=== PATIENT | female | born 1985 | race Caucasian/White ===

== ENCOUNTER 2018-05-25 10:38 | Emergency (ER) | payer OTHER ==
[2018-05-25] MEDS ORDERED: LIDOCAINE 2% URO-JET 5 ML KIT MM ONE (10:53)
--- NOTE | 2018-05-25 10:55 | ER Document Report ---
ED Medical Screen (RME) - General Chief Complaint: Hemorrhoids Stated Complaint: POSSIBLE HEMORRHOID Time Seen by Provider: 05/25/18 10:54 TRAVEL OUTSIDE OF THE [place] IN LAST 30 DAYS: No - HPI Notes: 05/25/18 10:54 History of hemorrhoids coming in for possible thrombosed hemorrhoid. - Related Data Allergies/Adverse Reactions: No Known Allergies Allergy (Verified 05/25/18 10:39) Physical Exam - Vital signs Vitals: Temp Pulse Resp BP Pulse Ox 98.3 F 69 14 112/61 98 05/25/18 10:47 05/25/18 10:47 05/25/18 10:47 05/25/18 10:47 05/25/18 10:47 Course - Vital Signs Vital signs: Temp Pulse Resp BP Pulse Ox 98.3 F 69 14 112/61 98 05/25/18 10:47 05/25/18 10:47 05/25/18 10:47 05/25/18 10:47 05/25/18 10:47
[2018-05-25] MEDS ORDERED: LIDOCAINE 1%/EPINEPHRINE INJ 20 ML VIAL INJ ONE (12:39)
--- NOTE | 2018-05-25 13:17 | ER Document Report ---
ED General - General Chief Complaint: Hemorrhoids Stated Complaint: POSSIBLE HEMORRHOID Time Seen by Provider: 05/25/18 10:54 Primary Care Provider: LUIS WILKINSON NP-C [Primary Care Provider] - Follow up as needed Notes: Patient has a hemorrhoid this been present for about 3 days. This is the fifth or more times that she has had a thrombosed hemorrhoid. No current bleeding. Just pain. Patient lifts weights which, of course, causes her to strain into the rectal area. TRAVEL OUTSIDE OF THE [place] IN LAST 30 DAYS: No - Related Data Allergies/Adverse Reactions: No Known Allergies Allergy (Verified 05/25/18 10:39) Past Medical History - Social History Smoking Status: Never Smoker Family History: Reviewed & Not Pertinent Patient has suicidal ideation: No Patient has homicidal ideation: No Past Surgical History: Reports: Hx Section, Hx Tonsillectomy Review of Systems - Review of Systems Notes: CONSTITUTIONAL : Denies fever. CARDIOVASCULAR: Denies chest pain. RESPIRATORY: Denies cough, chest congestion, or shortness of breath. GASTROINTESTINAL: Denies abdominal pain or nausea, vomiting, or diarrhea. GENITOURINARY: Denies difficulty or painful urinating, urinary frequency, blood in urine. Physical Exam - Vital signs Vitals: Temp Pulse Resp BP Pulse Ox 98.3 F 69 14 112/61 98 05/25/18 10:47 05/25/18 10:47 05/25/18 10:47 05/25/18 10:47 05/25/18 10:47 Interpretation: Normal Notes: PHYSICAL EXAMINATION: GENERAL: Well-appearing, no acute distress. HEAD: Atraumatic, normocephalic. NECK: Normal range of motion, supple. LUNGS: Breath sounds clear and equal bilaterally. HEART: Regular rate and rhythm without murmurs heard. ABDOMEN: Soft, nontender. No guarding or rebound or masses felt. Anal exam: Patient has a small thrombosed hemorrhoid at about 9:00 location when patient is on her abdomen or knees. Very tender to the touch. Not bleeding at this time. Course - Vital Signs Vital signs: Temp Pulse Resp BP Pulse Ox 98.1 F 89 14 114/68 96 05/25/18 13:41 05/25/18 13:41 05/25/18 10:47 05/25/18 13:41 05/25/18 13:41 Procedures - Incision and Drainage Left Rectal Type: Simple Anesthetic type: 1% Lidocaine w/epi mL's of anesthetic: 1 Blade size: 11 I&D procedure: Betadine prep applied Incision Method: Incision made by scalpel Amount/type of drainage: Small intact hemorrhoid removed without difficulty. Notes: 05/25/18 19:33 Very shallow stick of the hemorrhoid with the point of the scalpel. Did not enter any muscle areas. Gentle pressure on the hemorrhoid popped the clot out. Patient had another smaller area that could have been a small hemorrhoid adjac ent to this original one. I did put a little squirt of Xylocaine there and just touch through the skin with the point of the 11 blade and then try to compress but nothing came out and I do not think there is an actual clot there. I think it may be blue discoloration from venous flow. Discharge - Discharge Clinical Impression: I&D hemorrhoid Condition: Stable Disposition: HOME, SELF-CARE Additional Instructions: Incision and drainage of hemorrhoids You have hemorrhoids. These are formed by enlargement of veins around the anus. The cause is increased pressure in the veins, from or straining at bowel movements. Hemorrhoids often cause itching and bleeding with bowel movements. When a hemorrhoid becomes clotted, severe pain and swelling result. Soothing creams and suppositories are often prescribed. Warm sitz-baths may also decrease pain, swelling, and itching. Eat a high-fiber diet. Stool softeners such as Metamucil will help. Keep the area very clean. Medicated cleansing pads (such as Tucks) are useful after bowel movements. A hose-mounted shower unit (like a shower massager at low water pressure) can be used to clean around tender hemorrhoid tags. You should call the doctor or return if you develop fever, increasing pain, or an enlarging mass around the anus, or if you simply fail to improve with treatment. We performed an incision and drainage of your hemorrhoid. A small clot was removed. We recommend soaking in warm water either in the tub or in the shower for a few minutes several times a day for the first couple of days. Do not do any strenuous heavy hard lifting light weight lifting for at least a week. FOLLOW-UP CARE: If you have been referred to a physician for follow-up care, call the physicians office for an appointment as you were instructed or within the next two days. If you experience worsening or a significant change in your symptoms, notify the physician immediately or return to the Emergency Department at any time for re-evaluation. Referrals: LUIS WILKINSON NP-C [Primary Care Provider] - Follow up as needed
[2018-05-25 13:51] VITALS: BP 114/68
== END 2018-05-25 13:42 | disposition home or self-care (01) ==
LOC: ER 10:38
DX: K64.5 Perianal venous thrombosis (principal)
CPT/HCPCS: 46083; 99282; J3490 ×2